=== PATIENT | male | born 1990 | race Caucasian/White ===

== ENCOUNTER 2018-03-02 05:39 | Emergency (ER) | payer SELFPAY ==
[~2018-03-02] VITALS: Ht 165.1 cm; Wt 124.7 kg
[2018-03-02 06:44] VITALS: BP 138/82
--- NOTE | 2018-03-02 06:51 | PHYS DOC ---
Past Medical History Past Medical History: No Pertinent History Past Surgical History: Other Additional Past Surgical Histo: HERNIA REPAIR INFANT Alcohol Use: Occasionally Drug Use: Marijuana, Opiates Adult General Chief Complaint Chief Complaint: OVERDOSE HPI HPI Patient is a 28 year old male presents with accidental drug overdose. Patient was found unresponsive at a friend's home after drinking an unknown quantity of alcohol accompanied with the few narcotic pain pills. Patient states that the alcohol and pain medication was recreational in that he had no intent to overdose or harm himself. On EMS arrival, the patient was unresponsive in a chair. Reported GCS was 3. Patient did require 3 doses of 0.4 mg of Narcan to regain consciousness. GCS of T9 ED arrival. Patient noted to be tachycardic and anxious. Denies other coingestants, specifically denies cocaine and methamphetamines. Patient requesting to be discharged from the emergency department. It was explained to the patient, that the risk of medication may wear off prior to the pain medication being out of his system and that he is at high risk of decreased mental status lash respiratory after leaving the emergency department. Nonetheless, patient requests discharge at this time.[] Review of Systems Review of Systems ROS as per HPI All other systems were reviewed and found to be within normal limits, except as documented in this note. Current Medications Current Medications Current Medications Medications (Trade) Dose Ordered Sig/Eugene Start Time Stop Time Status Last Admin Dose Admin Sodium Chloride 1,000 ml @ 1,000 mls/hr 1X ONCE 03/02/18 07:00 03/02/18 07:59 03/02/18 06:32 1,000 MLS/HR Allergies Allergies Allergies Coded Allergies Type Severity Reaction Last Updated Verified No Known Drug Allergies 03/02/18 No Physical Exam Physical Exam Constitutional: Well developed, well nourished, anxious. [] HENT: Normocephalic, atraumatic, bilateral external ears normal, oropharynx moist, no oral exudates, nose normal. [] Eyes: PERRLA, EOMI, conjunctiva normal, no discharge. [] Neck: Normal range of motion. [] Cardiovascular: Tachycardic[] Lungs & Thorax: Bilateral breath sounds clear to auscultation [] Abdomen: Bowel sounds normal, soft, obese. [] Skin: Warm, dry, no erythema, no rash. [] Back: No tenderness. [] Extremities: No tenderness. [] Neurologic: Alert and oriented, normal motor function, normal sensory function, no focal deficits noted. [] Psychologic: Affect anxious, judgement normal, no HI/SI . [] Current Patient Data Vital Signs Vital Signs Date Time Temp Pulse Resp B/P (MAP) Pulse Ox O2 Delivery O2 Flow Rate FiO2 03/02/18 05:50 99.0 142 12 195/135 (155) 96 Room Air 99.0 EKG EKG [] Radiology/Procedures Radiology/Procedures [] Course & Med Decision Making Course & Med Decision Making Pertinent Labs and Imaging studies reviewed. (See chart for details) [Accidental drug overdose with persistent tachycardia possibly related to withdrawal versus drug ingestion. IV fluids given. Patient monitored in the emergency department for deterioration for as long as he was willing to stay in the morning against leaving the emergency department prior to ablation of observation. Nevertheless, the patient was discharged at his request. Return precautions were reviewed. ] Dragon Disclaimer Dragon Disclaimer This electronic medical record was generated, in whole or in part, using a voice recognition dictation system. Departure Departure Impression: Primary Impression: Overdose Additional Impression: Alteration consciousness Disposition: 01 HOME, SELF-CARE Condition: GUARDED Patient Instructions: Overdose, Adult Additional Instructions: Please do not drink alcohol and take in combination with prescription medication or use either in excess as you are at high risk of or permanent disability. Follow-up with local primary care physician for outpatient rehabilitation referral. Return to the ED if does worsen. Problem Qualifiers DAHLIA MOORE DO Mar 02, 2018 06:51
[2018-03-02] MEDS ORDERED: IV NORMAL SALINE 1000ML BAG 1,000 ML IV ONE (07:00)
== END 2018-03-02 07:03 | disposition home or self-care (01) ==
LOC: ER 05:39
DX: T40.691A Poisoning by other narcotics, accidental (unintentional), initial encounter (principal); R40.4 Transient alteration of awareness; R00.0 Tachycardia, unspecified; E66.9 Obesity, unspecified; Z68.42 Body mass index [BMI] 45.0-49.9, adult; Y92.89 Other specified places as the place of occurrence of the external cause
CPT/HCPCS: 99283; J7030; 96360

== ENCOUNTER 2018-09-28 23:45 | Emergency (ER) | payer SELFPAY ==
[~2018-09-28] VITALS: Ht 165.1 cm; Wt 136.1 kg
[2018-09-29 00:07] LABS: BASO # 0.1 x10^3/uL (0.0-0.2); BASO % 1 % (0-3); EOS # 0.1 x10^3/uL (0.0-0.7); EOS % 2 % (0-3); HEMATOCRIT 41.8 % (39.0-53.0); HEMOGLOBIN 14.4 g/dL (13.0-17.5); LYMPH # 4.9 x10^3/uL (1.0-4.8); LYMPH % 52 % (24-48); MEAN CORPUSCULAR HEMOGLOBIN 32 pg (25-35); MEAN CORPUSCULAR HGB CONC 35 g/dL (31-37); MEAN CORPUSCULAR VOLUME 94 fL (79-100); MONO # 0.9 x10^3/uL (0.0-1.1); MONO % 9 % (0-9); NEUT # 3.4 x10^3/uL (1.8-7.7); NEUT % 36 % (31-73); PLATELET COUNT 273 x10^3/uL (140-400); RED BLOOD COUNT 4.46 x10^6/uL (4.30-5.70); RED CELL DISTRIBUTION WIDTH 13.1 % (11.5-14.5); WHITE BLOOD COUNT 9.4 x10^3/uL (4.0-11.0)
[2018-09-29 00:16] LABS: CALCIUM 8.7 mg/dL (8.5-10.1); CREATININE 1.1 mg/dL (0.7-1.3); GFR 80.3; POTASSIUM 3.6 mmol/L (3.5-5.1)
--- NOTE | 2018-09-29 00:16 | PHYS DOC ---
Past Medical History Past Medical History: No Pertinent History (EKTA MCCARTY APRN) Past Surgical History: Other Additional Past Surgical Histo: HERNIA REPAIR (EKTA MCCARTY APRN) Alcohol Use: Occasionally Drug Use: Marijuana, Opiates (EKTA MCCARTY APRN) Adult General Chief Complaint Chief Complaint: OVERDOSE HPI HPI Patient is a 28 year old male who presents for drug overdose. Patient was found by EMS in his car unresponsive in agonal breathing, he was given 2 doses 0.5 mg Narcan, zofran 4 mg and 1.5 mg of Narcan and he woke up. He arrives in the ED awake alert and oriented �3. He states he took 15 tablets of 20 mg of oxycodone for recreational purposes. He states he was not trying to kill himself. He states he has previous history of drug overdose. (KYLEREKTA STANLEY APRN) Review of Systems Review of Systems Constitutional: Denies fever or chills [] Eyes: Denies change in visual acuity, redness, or eye pain [] HENT: Denies nasal congestion or sore throat [] Respiratory: Denies cough or shortness of breath [] Cardiovascular: No additional information not addressed in HPI [] GI: Denies abdominal pain, nausea, vomiting, bloody stools or diarrhea [] : Denies dysuria or hematuria [] Musculoskeletal: Denies back pain or joint pain [] Integument: Denies rash or skin lesions [] Neurologic: Denies headache, focal weakness or sensory changes [] Psych: drug overdose (EKTA MCCARTY APRN) Current Medications Current Medications Current Medications Medications (Trade) Dose Ordered Sig/Eugene Start Time Stop Time Status Last Admin Dose Admin Sodium Chloride 1,000 ml @ 1,000 mls/hr 1X ONCE 09/29/18 01:00 09/29/18 01:59 09/29/18 00:20 1,000 MLS/HR (KENDALL TOBIAS DO) Allergies Allergies Allergies Coded Allergies Type Severity Reaction Last Updated Verified No Known Drug Allergies 03/02/18 No (KENDALL TOBIAS DO) Physical Exam Physical Exam Constitutional: Well developed, well nourished, no acute distress, non-toxic appearance. [] HENT: Normocephalic, atraumatic, bilateral external ears normal, oropharynx moist, no oral exudates, nose normal. [] Eyes: PERRLA, EOMI, conjunctiva normal, no discharge. [] Neck: Normal range of motion, no tenderness, supple, no stridor. [] Cardiovascular:Heart rate regular rhythm, no murmur [] Lungs & Thorax: Bilateral breath sounds clear to auscultation [] Abdomen: Bowel sounds normal, soft, no tenderness, no masses, no pulsatile masses. [] Skin: Warm, dry, no erythema, no rash. [] Back: No tenderness, no CVA tenderness. [] Extremities: No tenderness, no cyanosis, no clubbing, ROM intact, no edema. [] Neurologic: Alert and oriented X 3, normal motor function, normal sensory function, no focal deficits noted. [] Psychologic: flat affect. (EKTA MCCARTY APRN) Physical Exam Constitutional: Well developed, well nourished, no acute distress HENT: Normocephalic, atraumatic, oropharynx moist Eyes: Conjunctiva normal, no discharge Neck: Normal range of motion, no tenderness, supple Cardiovascular: Heart rate normal, regular rhythm Lungs & Thorax: Bilateral breath sounds clear to auscultation, no wheezing Abdomen: Soft, no tenderness Skin: Warm, dry, no erythema, no rash Extremities: No tenderness, ROM intact, no edema Neurologic: Alert and oriented X 3, no focal deficits noted Psychologic: Affect flat, cognition intact (KENDALL TOBIAS DO) Current Patient Data Vital Signs Vital Signs Date Time Temp Pulse Resp B/P (MAP) Pulse Ox O2 Delivery O2 Flow Rate FiO2 09/28/18 23:45 99.8 150 14 137/80 (99) 95 Room Air 99.8 (TOBIASKENDALL PIERCE DO) Lab Values Laboratory Tests Test 09/28/18 23:52 White Blood Count 9.4 x10^3/uL (4.0-11.0) Red Blood Count 4.46 x10^6/uL (4.30-5.70) Hemoglobin 14.4 g/dL (13.0-17.5) Hematocrit 41.8 % (39.0-53.0) Mean Corpuscular Volume 94 fL (79-100) Mean Corpuscular Hemoglobin 32 pg (25-35) Mean Corpuscular Hemoglobin Concent 35 g/dL (31-37) Red Cell Distribution Width 13.1 % (11.5-14.5) Platelet Count 273 x10^3/uL (140-400) Neutrophils (%) (Auto) 36 % (31-73) Lymphocytes (%) (Auto) 52 % (24-48) H Monocytes (%) (Auto) 9 % (0-9) Eosinophils (%) (Auto) 2 % (0-3) Basophils (%) (Auto) 1 % (0-3) Neutrophils # (Auto) 3.4 x10^3/uL (1.8-7.7) Lymphocytes # (Auto) 4.9 x10^3/uL (1.0-4.8) H Monocytes # (Auto) 0.9 x10^3/uL (0.0-1.1) Eosinophils # (Auto) 0.1 x10^3/uL (0.0-0.7) Basophils # (Auto) 0.1 x10^3/uL (0.0-0.2) Sodium Level 147 mmol/L (136-145) H Potassium Level 3.6 mmol/L (3.5-5.1) Chloride Level 106 mmol/L (98-107) Carbon Dioxide Level 26 mmol/L (21-32) Anion Gap 15 (6-14) H Blood Urea Nitrogen 11 mg/dL (8-26) Creatinine 1.1 mg/dL (0.7-1.3) Estimated GFR (Cockcroft-Gault) 80.3 BUN/Creatinine Ratio 10 (6-20) Glucose Level 156 mg/dL (70-99) H Calcium Level 8.7 mg/dL (8.5-10.1) Magnesium Level 1.8 mg/dL (1.8-2.4) Total Bilirubin 0.2 mg/dL (0.2-1.0) Aspartate Amino Transferase (AST) 61 U/L (15-37) H Alanine Aminotransferase (ALT) 129 U/L (16-63) H Alkaline Phosphatase 78 U/L (46-116) Creatine Kinase 416 U/L (39-308) H Creatine Kinase MB (Mass) 1.7 ng/mL (0.0-3.6) Creatine Kinase MB Relative Index 0.4 % (0-4) Total Protein 8.0 g/dL (6.4-8.2) Albumin 4.0 g/dL (3.4-5.0) Albumin/Globulin Ratio 1.0 (1.0-1.7) Lipase 121 U/L (73-393) Salicylates Level < 2.8 mg/dL (2.8-20.0) L Salicylate Last Dose Date Salicylate Last Dose Time Acetaminophen Level < 2 mcg/ml (10-30) L Acetaminophen Last Dose Date Acetaminophen Last Dose Time Ethyl Alcohol Level 89 mg/dL (0-10) H Laboratory Tests 09/28/18 23:52 Laboratory Tests 09/28/18 23:52 (KENDALL TOBIAS DO) EKG EKG [address] Tobias sinus tachycardia HR 147 no STEMI[] (EKTA MCCARTY APRN) Radiology/Procedures Radiology/Procedures [] (EKTA MCCARTY APRN) Radiology/Procedures AP CXR (preliminary interpretation by ED Physician) No acute process (KENDALL TOBIAS DO) Course & Med Decision Making Course & Med Decision Making Pertinent Labs and Imaging studies reviewed. (See chart for details) This is a 28-year-old male patient presented to the ED today via EMS after being found in his vehicle overdosed on oxycodone. Patient was given 2 doses of Narcan. He arrives in the ED awake alert and oriented. He is tachycardic in the 140s. He is denying any suicidal intent. He is refusing help with drug use. Police in the ED to see patient. Labs pending. [address] Tobias (EKTA MCCARTY APRN) Course & Med Decision Making Sign out received from Ekta SIERRA for patient with reports of taking 20mg Oxycodone tabs x 15 tabs for recreation. Denies suicidal ideation. Patient unclear if tabs were immediate release or extended release. Patient seen and evaluated by myself. Labs reviewed. Given possibility of Narcan wearing off prior to opiate, decision to recommend admission. Patient refusing of admission and elects to leave against medical advise. Patient acknowledges understanding of risks of leaving AMA including permanent disability and/or . AMA form signed. Discussed findings and plan with patient and family, who acknowledge understanding and agreement. (KENDALL TOBIAS DO) Dragon Disclaimer Dragon Disclaimer This electronic medical record was generated, in whole or in part, using a voice recognition dictation system. (MUTUNGA,EKTA [facility]) Departure Departure Impression: Primary Impression: Overdose Additional Impression: Left against medical advice Disposition: AGAINST MEDICAL ADVICE Condition: GUARDED Referrals: NO PCP (PCP) Patient Instructions: Discharge Against Medical Advice, Narcotic Overdose, Overdose, Adult Attending Signature Attending Signature I have personally interviewed and examined the patient. All charts, labs, and imaging studies were reviewed. I agree with the PA/PROGRAM MANAGER's findings, exam, and plan. (KENDALL TOBIAS DO) Critical Care Time Critical care time was 30 minutes which includes time at bedside, spent in discussion of patient's care with specialists and/or family members, with interpretation of laboratory and/or radiological studies and is exclusive of procedures. (KENDALL TOBIAS DO) Problem Qualifiers Primary Impression: Overdose Encounter type: initial encounter Injury intent: accidental or unintenti onal Qualified Codes: T50.901A - Poisoning by unspecified drugs, medicaments and biological substances, accidental (unintentional), initial encounter EKTA MCCARTY APRN Sep 29, 2018 00:16 KENDALL TOBIAS DO Sep 29, 2018 01:20
[2018-09-29 00:20] LABS: ACETAMIN < 2 mcg/ml (10-30); ETHANOL 89 mg/dL (0-10); SALIC < 2.8 mg/dL (2.8-20.0)
[2018-09-29 00:23] LABS: MAGNESIUM 1.8 mg/dL (1.8-2.4); TOTAL BILIRUBIN 0.2 mg/dL (0.2-1.0)
[2018-09-29] MEDS ORDERED: IV NORMAL SALINE 1000ML BAG 1,000 ML IV ONE ×2 (01:00)
[2018-09-29 01:03] VITALS: BP 112/64
--- NOTE | 2018-09-29 08:17 | RAD ---
Chest radiograph 09/28/2018 11:57 PM INDICATION: Overdose COMPARISON: None available TECHNIQUE: Portable upright frontal view of the chest is provided. FINDINGS: The cardiomediastinal silhouette is within normal limits. There are no pleural effusions. There is no pulmonary vascular congestion. There is no pneumothorax. The lungs are clear. No significant osseous abnormality is identified. IMPRESSION: No acute cardiopulmonary process. Electronically signed by: Ashley Randall MD (09/29/2018 8:15 AM) [facility]
--- NOTE | 2018-09-30 06:47 | EKG ---
[facility] [address] [place] [address] Test Date: 2018-09-28 Test Time: 23:51:01 Pat Name: CURT DEL RIO Department: Room: Gender: M Information Analyst: : 1990 Requested By: GAMA MCCARTY Order Number: [id number] Reading MD: Measurements Intervals [place] Rate: 147 P: 87 VT: 102 QRS: 45 QRSD: 90 T: 19 QT: 280 QTc: 444 Interpretive Statements SINUS TACHYCARDIA OTHERWISE NORMAL ECG No previous ECG available for comparison
== END 2018-09-29 01:20 | disposition left against medical advice (07) ==
LOC: ER 23:45
DX: T40.2X1A Poisoning by other opioids, accidental (unintentional), initial encounter (principal); Y92.89 Other specified places as the place of occurrence of the external cause
CPT/HCPCS: 36415; 71045; 80053; 80329; 82553; 83690; 83735; 85025; 93005; 99285; G0480; J7030

== ENCOUNTER 2019-06-15 16:43 | Emergency (ER) | payer SELFPAY ==
[~2019-06-15] VITALS: Ht 165.1 cm; Wt 140.0 kg
[2019-06-15 16:43] VITALS: BP 159/88
--- NOTE | 2019-06-15 17:14 | PHYS DOC ---
Past Medical History Past Medical History: No Pertinent History Past Surgical History: Other Additional Past Surgical Histo: HERNIA REPAIR INFANT Smoking Status: Current Every Day Smoker Alcohol Use: Occasionally Drug Use: Marijuana, Opiates Social History Narrative: fentanyl General Adult EDM: Chief Complaint: DRUG ABUSE HPI: HPI: Patient is a 29 year old male with history of fentanyl abuse who presents via EMS with complaining of fentanyl overdose and unresponsiveness. Patient stated he snorted fentanyl while he was inside of his car and became unresponsive. Patient's parents found him unresponsive and called 911. EMS reported that jd bronson was not breathing and they started to bagging him and gave him 2 mg of Narcan intranasally and he became alert and oriented in a very short time. Patient is alert and oriented at arrival to ER with GCS of 15 and denies suicidal homicidal ideation and hallucination. Patient denies any complaint. Patient has history of previous fentanyl overdose. Review of Systems: Review of Systems: Constitutional: Denies fever or chills. [] Eyes: Denies change in visual acuity. [] HENT: Denies nasal congestion or sore throat. [] Respiratory: Denies cough or shortness of breath. [] Cardiovascular: Denies chest pain or edema. [] GI: Denies abdominal pain, nausea, vomiting, bloody stools or diarrhea. [] : Denies dysuria. [] Musculoskeletal: Denies back pain or joint pain. [] Integument: Denies rash. [] Neurologic: Denies headache, focal weakness or sensory changes. [] Endocrine: Denies polyuria or polydipsia. [] Lymphatic: Denies swollen glands. [] Psychiatric: Denies depression or anxiety. [] Heart Score: Risk Factors: Risk Factors: DM, Current or recent (<one month) smoker, HTN, HLP, family history of CAD, obesity. Risk Scores: Score 0 - 3: 2.5% MACE over next 6 weeks - Discharge Home Score 4 - 6: 20.3% MACE over next 6 weeks - Admit for Clinical Observation Score 7 - 10: 72.7% MACE over next 6 weeks - Early Invasive Strategies Allergies: Allergies: Allergies Coded Allergies Type Severity Reaction Last Updated Verified No Known Drug Allergies 03/02/18 No Physical Exam: PE: Constitutional: Well nourished, no acute distress, non-toxic appearance. [] HENT: Normocephalic, atraumatic, bilateral external ears normal, oropharynx moist, no oral exudates, nose normal. [] Eyes: PERRLA, EOMI, conjunctiva normal, no discharge. [] Neck: Normal range of motion, no tenderness, supple, no stridor. [] Cardiovascular:Heart rate regular rhythm, no murmur [] Lungs & Thorax: Bilateral breath sounds clear to auscultation [] Abdomen: Bowel sounds normal, soft, no tenderness, no masses, no pulsatile masses. [] Skin: Warm, dry, no erythema, no rash. [] Back: No tenderness, no CVA tenderness. [] Extremities: No tenderness, no cyanosis, no clubbing, ROM intact, no edema. [] Neurologic: Alert and oriented X 3, normal motor function, normal sensory function, no focal deficits noted. [] Psychologic: Affect normal, judgement normal, mood normal. [] Current Patient Data: Vital Signs: Vital Signs Date Time Temp Pulse Resp B/P (MAP) Pulse Ox O2 Delivery O2 Flow Rate FiO2 06/15/19 16:43 98.5 121 16 159/88 (111) 97 Room Air 98.5 EKG: EKG: [] Radiology/Procedures: Radiology/Procedures: [] Course & Med Decision Making: Course & Med Decision Making Evaluation of patient in ER showed 29-year-old male patient brought in by EMS because of fentanyl overdose that improved with Narcan intranasally 2 mg. Patient was alert and oriented and denied suicidal or homicidal ideation and hallucination. Patient ambulated without problem. Patient did not want to have more test and evaluation and wanted to go home. Patient feels the plan to come to pick him up. Patient was advised to stop taking fentanyl and follow-up with rehab. I've spoken with the patient and/or caregivers. I've explained the patient's condition, diagnosis and treatment plan based on information available to me at this time. I've answered the patient's and/or caregivers questions and addressed any concerns. The patient and/or caregivers have a good understanding the patient's diagnosis, condition and treatment plan as can be expected at this point. Vital signs have been stabilized. The patient's condition is stable for discharge from the emergency department. The patient will pursue further outpatient evaluation with her primary care provider or other designated consulting physician as outlined in the discharge instructions. Patient and/or caregivers are agreeable to this plan of care and follow-up instructions have been explained in detail. The patient and/or caregiv ers have received these instructions in written format and expressed understanding of these discharge instructions. The patient and her caregivers are aware that if any significant change in condition or worsening of symptoms should prompt him to immediately return to this of the closest emergency department. If an emergent department is not readily available I would encourage him to call 911. Stacy Disclaimer: Stacy Disclaimer: This electronic medical record was generated, in whole or in part, using a voice recognition dictation system. Departure Departure Impression: Primary Impression: Accidental fentanyl overdose Qualified Codes: T40.4X1A - Poisoning by other synthetic narcotics, accidental (unintentional), initial encounter Additional Impressions: Substance abuse Morbid obesity Disposition: HOME, SELF-CARE (At 1713) Condition: IMPROVED Referrals: NO PCP (PCP) Patient Instructions: Narcotic Overdose Additional Instructions: Drink plenty of liquids Follow-up with your primary care physician in 2-3 days Return to ER if not getting better Thank you for visiting [facility]. We appreciate you trusting us with your care. If any additional problems come up don't hesitate to return to visit us. Please follow up with your primary care provider so they can plan additional care if needed and know about the problem that you had. If symptoms worsen come back to the Emergency Department. Any concerning symptoms that start such as chest pain, shortness of air, weakness or numbness on one side of the body, running high fevers or any other concerning symptoms return to the ER. REBECA MATA MD Jun 15, 2019 17:14
== END 2019-06-15 17:17 | disposition home or self-care (01) ==
LOC: ER 16:43
DX: T40.4X1A Poisoning by other synthetic narcotics, accidental (unintentional), initial encounter (principal); F17.200 Nicotine dependence, unspecified, uncomplicated; F12.90 Cannabis use, unspecified, uncomplicated; F15.10 Other stimulant abuse, uncomplicated; Z98.890 Other specified postprocedural states; Y92.89 Other specified places as the place of occurrence of the external cause
CPT/HCPCS: 99283